=== PATIENT | female | born 2000 | race Caucasian/White ===

== ENCOUNTER 2020-08-25 16:09 | Outpatient (CLI) | payer OTHER ==
[2020-08-25 17:08] LABS: APPEARANCE,URINE CLOUDY; BILIRUBIN,URINE NEGATIVE (NEGATIVE); GLUCOSE, URINE NEGATIVE (NEGATIVE); KETONES,URINE NEGATIVE (NEGATIVE); LEUKOCYTE ESTERASE,URINE LARGE (NEGATIVE); NITRITE,URINE NEGATIVE (NEGATIVE); PROTEIN,URINE 30 mg/dL (NEGATIVE); URINE SPECIFIC GRAVITY 1.025
[2020-08-25 17:20] LABS: COLOR,URINE YELLOW
[2020-08-25 17:23] LABS: URINE AMPHETAMINES SCREEN NEGATIVE; URINE BARBITURATES SCREEN NEGATIVE; URINE BENZODIAZEPINES SCREEN NEGATIVE; URINE COCAINE SCREEN NEGATIVE; URINE MARIJUANA (THC) SCREEN NEGATIVE; URINE METHADONE SCREEN NEGATIVE; URINE PHENCYCLIDINE SCREEN NEGATIVE
--- NOTE | 2020-08-25 17:37 | Non Stress Test Report ---
Non Stress Test Datetime Report Generated by CPN: 08/25/2020 17:37 DEMOGRAPHIC Test Number: 1 EGA NST: 36.6 INDICATION Indication for Study (NST) Other: labor check VITAL SIGNS Temperature - NST: 97.5 Pulse - NST: 103 RESP - NST: 18 MONITORING Time on Monitor: 08/25/2020 16:38 Time off Monitor: 08/25/2020 17:04 NST Duration: 26 NST INTERVENTIONS Physician Notified NST: K Arroyo CNM BABY A: [id number] BABY A Movement : Present Contraction Frequency : 0 FHR Baseline : 145 Accelerations : 15X15 Decelerations : None Variability : Moderate 6-25bpm NST Review: Meets Criteria for Reactive NST NST Review: Meets Criteria for Reactive NST NST Review and Verified By : HUBERT Villa Results: Reactive NST REPORT Report Trigger: Send Report
== END 2020-08-25 17:15 | disposition home or self-care (01) ==
LOC: LC 16:09
PROVIDERS: ATTEND Obstetrics & Gynecology
DX: O47.03 False labor before 37 completed weeks of gestation, third trimester (principal); O99.283 Endocrine, nutritional and metabolic diseases complicating pregnancy, third trimester; E86.0 Dehydration; Z3A.36 36 weeks gestation of pregnancy
CPT/HCPCS: 59025; 80307; 81005

== ENCOUNTER 2020-09-08 01:11 | Outpatient (CLI) | payer OTHER ==
[2020-09-08 02:00] LABS: APPEARANCE,URINE SLIGHTLY-CLOUDY; BILIRUBIN,URINE NEGATIVE (NEGATIVE); COLOR,URINE YELLOW; GLUCOSE, URINE NEGATIVE (NEGATIVE); KETONES,URINE NEGATIVE (NEGATIVE); LEUKOCYTE ESTERASE,URINE MODERATE (NEGATIVE); NITRITE,URINE NEGATIVE (NEGATIVE); PROTEIN,URINE NEGATIVE (NEGATIVE); URINE SPECIFIC GRAVITY 1.017; UROBILINOGEN,URINE NEGATIVE mg/dL (<2.0)
[2020-09-08 02:18] LABS: URINE AMPHETAMINES SCREEN NEGATIVE; URINE BARBITURATES SCREEN NEGATIVE; URINE BENZODIAZEPINES SCREEN NEGATIVE; URINE COCAINE SCREEN NEGATIVE; URINE MARIJUANA (THC) SCREEN NEGATIVE; URINE METHADONE SCREEN NEGATIVE; URINE PHENCYCLIDINE SCREEN NEGATIVE
--- NOTE | 2020-09-08 02:47 | Non Stress Test Report ---
Non Stress Test Datetime Report Generated by CPN: 09/08/2020 02:47 DEMOGRAPHIC EGA NST: 38.6 INDICATION Indication for Study (NST) Other: lc for r/o srom URINE RESULTS Urine Blood - NST: Negative MONITORING Monitor Explained: Monitor Explained; Test Explained; Patient Verbalized Understanding Time on Monitor: 09/08/2020 01:26 Time off Monitor: 09/08/2020 02:39 NST Duration: 73 NST INTERVENTIONS NST Interventions: PO Hydration; Reposition Patient Physician Notified NST: Dr Palencia BABY A: [id number] BABY A Movement : Present Contraction Frequency : 4-6 FHR Baseline : 140 Accelerations : 15X15 Decelerations : None Variability : Moderate 6-25bpm NST Review: Meets Criteria for Reactive NST NST Review and Verified By : Gini Hutchinson RN NST Results: Reactive NST REPORT Report Trigger: Send Report
== END 2020-09-08 02:48 | disposition home or self-care (01) ==
LOC: LC 01:11
PROVIDERS: ATTEND Obstetrics & Gynecology
DX: O47.1 False labor at or after 37 completed weeks of gestation (principal); Z3A.38 38 weeks gestation of pregnancy
CPT/HCPCS: 80307; 81005; 84112

== ENCOUNTER 2020-09-14 14:57 | Outpatient (CLI) | payer OTHER ==
[2020-09-14 15:33] LABS: APPEARANCE,URINE CLOUDY; BILIRUBIN,URINE NEGATIVE (NEGATIVE); COLOR,URINE YELLOW; GLUCOSE, URINE NEGATIVE (NEGATIVE); KETONES,URINE NEGATIVE (NEGATIVE); LEUKOCYTE ESTERASE,URINE LARGE (NEGATIVE); NITRITE,URINE NEGATIVE (NEGATIVE); PROTEIN,URINE 30 mg/dL (NEGATIVE); URINE SPECIFIC GRAVITY 1.021; UROBILINOGEN,URINE NEGATIVE mg/dL (<2.0)
[2020-09-14 16:00] LABS: URINE AMPHETAMINES SCREEN NEGATIVE; URINE BARBITURATES SCREEN NEGATIVE; URINE BENZODIAZEPINES SCREEN NEGATIVE; URINE COCAINE SCREEN NEGATIVE; URINE MARIJUANA (THC) SCREEN NEGATIVE; URINE METHADONE SCREEN NEGATIVE; URINE PHENCYCLIDINE SCREEN NEGATIVE
--- NOTE | 2020-09-14 16:18 | Non Stress Test Report ---
Non Stress Test Datetime Report Generated by CPN: 09/14/2020 16:17 DEMOGRAPHIC Test Number: 3 EGA NST: 39.5 INDICATION Indication for Study (NST) Other: labor check VITAL SIGNS Temperature - NST: 97.1 Pulse - NST: 92 RESP - NST: 22 NBPSYS NST: 106 NBPDIA NST: 59 MONITORING Monitor Explained: Monitor Explained; Test Explained; Patient Verbalized Understanding Time on Monitor: 09/14/2020 15:13 Time off Monitor: 09/14/2020 15:46 NST Duration: 33 NST INTERVENTIONS NST Interventions: PO Hydration; Reposition Patient Physician Notified NST: K Arroyo BABY A: [id number] BABY A Movement : Present Contraction Frequency : 0 FHR Baseline : 150 Accelerations : 15X15 Decelerations : None Variability : Moderate 6-25bpm NST Review: Meets Criteria for Reactive NST NST Review and Verified By : Dylan Yao RN NST Results: Reactive NST REPORT Report Trigger: Send Report
== END 2020-09-14 16:03 | disposition home or self-care (01) ==
LOC: LC 14:57
PROVIDERS: ATTEND Obstetrics & Gynecology Gynecology
DX: O42.02 Full-term premature rupture of membranes, onset of labor within 24 hours of rupture (principal); Z3A.39 39 weeks gestation of pregnancy; Z02.83 Encounter for blood-alcohol and blood-drug test
CPT/HCPCS: 59025; 80307; 81005; 84112

== ENCOUNTER 2020-09-20 08:31 | Inpatient (IN) | payer OTHER ==
[2020-09-20 10:17] LABS: APPEARANCE,URINE CLOUDY; BILIRUBIN,URINE NEGATIVE (NEGATIVE); COLOR,URINE YELLOW; GLUCOSE, URINE NEGATIVE (NEGATIVE); KETONES,URINE NEGATIVE (NEGATIVE); LEUKOCYTE ESTERASE,URINE LARGE (NEGATIVE); NITRITE,URINE NEGATIVE (NEGATIVE); PROTEIN,URINE 30 mg/dL (NEGATIVE); URINE SPECIFIC GRAVITY 1.019; UROBILINOGEN,URINE NEGATIVE mg/dL (<2.0)
[2020-09-20 10:37] LABS: URINE AMPHETAMINES SCREEN NEGATIVE; URINE BARBITURATES SCREEN NEGATIVE; URINE BENZODIAZEPINES SCREEN NEGATIVE; URINE COCAINE SCREEN NEGATIVE; URINE MARIJUANA (THC) SCREEN NEGATIVE; URINE METHADONE SCREEN NEGATIVE; URINE PHENCYCLIDINE SCREEN NEGATIVE
--- NOTE | 2020-09-20 10:56 | Admission Physical ---
Datetime Report Generated by CPN: 09/20/2020 10:56 CURRENT ADMISSION Hx Assessment: The History has been Reviewed and is Current Chief Complaint: Uterine Contractions Chief Complaint Other: IOL scheduled for 09/19/20 but not able to come in due to patient census however now in active labor with contracitons Q 5minutes and cervical change Indication for Induction: Maternal Diabetes Admit Impression : Term, Intrauterine Admit Plan: Admit to Unit; Initiate Labor Induction Protocol ALLERGIES Medication Allergies: No Medication Allergies: No Known Allergies (09/14/2020) Latex: No Latex Allergies OBSTETRICAL HISTORY EDC: 09/16/2020 00:00 : 1 Para: 0 Term: 0 : 0 SAB: 0 IAB: 0 Livin Gestational Diabetes: Yes MEDICAL HISTORY Diabetes: Yes Diabetes Type: Gestational Diabetes PHYSICAL EXAM General: Normal HEENT: Normal Neurologic: Normal Thyroid: Normal Heart: Normal Lungs: Normal Breast: Normal Back: Normal Abdomen: Normal Genitourinary Exam: Normal Extremities: Normal DTRs: Normal Pelvic Type: Adequate Vital Signs: Reviewed VAGINAL EXAM Dilatation: 3 Effacement: 75 Station: -3 Contraction Comments: Every 3-5 minutes MEMBRANES Pooling: Negative Membranes: Intact FETUS A EGA: 40.4 Monitoring: External US FHR- Baseline: 130 Variability: Moderate 6-25bpm Accelerations: 15X15 Decelerations: None FHR Category: Category I Presentation: Vertex Admit Comment: G1 at 40.4 wks EGA for IOL although is torey now every 5 minutes-- > active labor -Admit to LDR -NPO and IVFs: LR at 150cc/hr after 1 liter bolus -A2GDM, Accuchecks Q 4 hours, then Q 2 hours -Will monitor for cervical change and if not changing then will plan for cytotec/pitocin/AROM -GBS negative -Anticipate INFORMED CONSENT Informed Consent Obtained: Vaginal Delivery; Section Delivery; Induction of Labor; Vacuum/Forceps Assist; Risks, Benefits and Alternatives Discussed Signature: with User ID: Janelle : with User ID: Janelle
[2020-09-20] MEDS ORDERED: GLUCAGON,HUMAN RECOMB 1 MG INJ IM PRN (11:10)
[2020-09-20] MEDS ORDERED: OXYTOCIN/0.9 % SODIUM CHLORIDE 30 UNIT/500 ML RTUINJ IV PRN (11:10)
[2020-09-20] MEDS ORDERED: RINGERS SOLUTION,LACTATED 300 ML IV ONE (11:10)
[2020-09-20] MEDS ORDERED: ACETAMINOPHEN 325 MG TABLET PO PRN (11:10)
[2020-09-20] MEDS ORDERED: ZOLPIDEM TARTRATE 5 MG TABLET PO PRN (11:10)
[2020-09-20] MEDS ORDERED: DEXTROSE 50%-WATER 25 GM/50 ML DISP.SYRIN IV PRN ×2 (11:10)
[2020-09-20] MEDS ORDERED: RINGERS SOLUTION,LACTATED 1,000 ML IV PRN (11:10)
[2020-09-20] MEDS ORDERED: MAG HYDROX/AL HYDROX/SIMETH SUSP 30 ML UDCUP PO PRN (11:10)
[2020-09-20] MEDS ORDERED: DEXTROSE 40% GEL 15 GM TUBE PO PRN ×2 (11:10)
[2020-09-20 11:54] LABS: ABSOLUTE LYMPHOCYTES (AUTO) 2.1 10^3/uL (0.5-4.7); ABSOLUTE MONOCYTES (AUTO) 0.4 10^3/uL (0.1-1.4); ABSOLUTE NEUT (AUTO) 10.1 10^3/uL (1.7-8.2); BASOPHILS % (AUTO) 0.2 % (0-2); EOSINOPHILS % (AUTO) 0.3 % (0-6); HEMATOCRIT 32.4 % (36.0-47.0); HEMOGLOBIN 10.6 g/dL (12.0-15.5); LYMPHOCYTES % (AUTO) 16.7 % (13-45); MEAN CORPUSCULAR HEMOGLOBIN 23.8 pg (27.0-33.4); MEAN CORPUSCULAR HGB CONC 32.7 g/dL (32.0-36.0); MEAN CORPUSCULAR VOLUME 73 fl (80-97); PLATELET COUNT 240 10^3/uL (150-450); RED BLOOD COUNT 4.44 10^6/uL (3.72-5.28); RED CELL DISTRIBUTION WIDTH 21.1 % (11.5-14.0); SEGMENTED NEUTROPHILS % (AUTO) 79.8 % (42-78); TOTAL CELLS COUNTED % (AUTO) 100 %; WHITE BLOOD COUNT 12.7 10^3/uL (4.0-10.5)
[2020-09-20] MEDS ORDERED: MISOPROSTOL 0.1 MG TABLET ONE (12:29)
--- NOTE | 2020-09-20 12:42 | L&D Progress Notes ---
PROGRESS NOTES Datetime Report Generated by CPN: 09/20/2020 12:42 PROGRESS NOTE Informed Consent Obtained: Vaginal Delivery; Section Delivery; Induction of Labor; Vacuum/Forceps Assist; Risks, Benefits and Alternatives Discussed Comment: c/o of increase in pain with uc's, VE 4/80/vtx/-1, OOB to BR, Cat 1 strip, uc's q 3-4, mod with palpation, desires epidural when available, mom inroom with pt VAGINAL EXAM Dilatation: 3 Effacement: 75 Station: -3 Contractions: Every 3-5 minutes LAST VAGINAL EXAM-NURSING Nursing Exam Dilitation: 4.0 Nursing Exam Effacement: 80 Nursing Exam Station: -1 Nursing Exam Contractions: toco applied MEMBRANES Pooling: Negative Membranes: Intact FETUS A : 40.4 Presentation: Vertex SIGNATURE SIGNATURE: [id number];[id number];[id number] Assignment: Serene Palencia MD Signature: with User ID: Leonila : with User ID: Leonila
[2020-09-20] MEDS ORDERED: LIDOCAINE 1% INJ-PF (10 MG/ML) 30 ML SDV ONE ×2 (13:30→19:21)
[2020-09-20] MEDS ORDERED: OXYTOCIN/0.9 % SODIUM CHLORIDE 30 UNIT/500 ML RTUINJ ONE (13:30)
[2020-09-20] MEDS ORDERED: OXYTOCIN 10 UNIT/ML VIAL ONE (13:30)
[2020-09-20] MEDS ORDERED: MISOPROSTOL 0.2 MG TABLET ONE (13:30)
[2020-09-20] MEDS ORDERED: EPHEDRINE SULFATE INJ 50 MG/1 ML AMPULE ONE (14:54)
[2020-09-20] MEDS ORDERED: ROPIVACAINE HCL 0.2% INJ/PF (2 MG/ML) 20 ML SDV ONE (14:55)
[2020-09-20] MEDS ORDERED: FENTANYL/BUPIVACAINE/NS/PF 300 MCG/150 ML RTUINJ EPI ONE (14:55)
--- NOTE | 2020-09-20 15:11 | L&D Progress Notes ---
PROGRESS NOTES Datetime Report Generated by CPN: 09/20/2020 15:11 PROGRESS NOTE Informed Consent Obtained: Vaginal Delivery; Section Delivery; Induction of Labor; Vacuum/Forceps Assist; Risks, Benefits and Alternatives Discussed Comment: pt OOB in room, had several decelerations, back to bed, monitor adjusted, Cat 1 strip with moderate variability, uc's stronger, discussed epidural VAGINAL EXAM Dilatation: 3 Effacement: 75 Station: -3 Contractions: Every 3-5 minutes LAST VAGINAL EXAM-NURSING Nursing Exam Dilitation: 4.0 Nursing Exam Effacement: 80 Nursing Exam Station: -1 Nursing Exam Contractions: toco applied MEMBRANES Pooling: Negative Membranes: Intact FETUS A : 40.4 Presentation: Vertex SIGNATURE SIGNATURE: [id number];[id number];[id number] Assignment: Serene Palencia MD Signature: with User ID: Leonila : with User ID: Leonila
[2020-09-21] MEDS ORDERED: CEFAZOLIN 2 GM/D5W RTU 2 GM/50 ML RTUPB IV ONE (00:32)
[2020-09-21] MEDS ORDERED: CITRIC ACID/SODIUM CITRATE ORAL SOLN 15 ML UDCUP ONE (00:32)
[2020-09-21] MEDS ORDERED: KETOROLAC TROMETHAMINE INJ/PF 30 MG/1 ML SDV ONE (00:50)
[2020-09-21] MEDS ORDERED: MIDAZOLAM 2 MG/2 ML INJ ONE (00:50)
[2020-09-21] MEDS ORDERED: EPHEDRINE SULFATE INJ 50 MG/1 ML AMPULE ONE (00:50)
[2020-09-21] MEDS ORDERED: OXYTOCIN/0.9 % SODIUM CHLORIDE 30 UNIT/500 ML RTUINJ ONE (00:50)
[2020-09-21] MEDS ORDERED: FENTANYL CITRATE INJ/PF 100 MCG/2 ML AMPUL ONE ×2 (00:50→03:01)
[2020-09-21] MEDS ORDERED: LIDOCAINE 2% INJ-PF (20 MG/ML) 10 ML AMPUL ONE (00:50)
[2020-09-21] MEDS ORDERED: OXYTOCIN 10 UNIT/ML VIAL ONE (00:50)
[2020-09-21] MEDS ORDERED: ONDANSETRON HCL INJ/PF 4 MG/2 ML SDV ONE (00:51)
[2020-09-21] MEDS ORDERED: ACETAMINOPHEN 1,000 MG/100 ML RTUPB IV ONE (00:51)
[2020-09-21] MEDS ORDERED: DIPH/PERTUSS(ACELL)/TETANUS VAC/PF 0.5 ML SYR (>=10YO) IM PRN (02:18)
[2020-09-21] MEDS ORDERED: PROMETHAZINE HCL INJ 25 MG/1 ML VIAL IV PRN (02:18)
[2020-09-21] MEDS ORDERED: OXYTOCIN/0.9 % SODIUM CHLORIDE 30 UNIT/500 ML RTUINJ IV PRN (02:18)
[2020-09-21] MEDS ORDERED: ACETAMINOPHEN 325 MG TABLET PO PRN (02:18)
[2020-09-21] MEDS ORDERED: HYDROMORPHONE HCL INJ/PF 2 MG/ML AMPULE IV PRN (02:18)
[2020-09-21] MEDS ORDERED: RINGERS SOLUTION,LACTATED 1,000 ML IV PRN (02:18)
[2020-09-21] MEDS ORDERED: SIMETHICONE 80 MG TAB.CHEW PO PRN (02:18)
[2020-09-21] MEDS ORDERED: MEASLES,MUMPS&RUBELLA VACC/PF 0.5 ML VIAL SUBCUT PRN (02:18)
--- NOTE | 2020-09-21 02:31 | Operative Report ---
Operative Report DATE OF SURGERY: 09/21/20 PREOPERATIVE DIAGNOSIS: Intrauterine 40.4 wks EGA. A2GDM. Arrest of descent. Non-reassuring heart tracing: repetetive decels POSTOPERATIVE DIAGNOSIS: Same as above OPERATION: Primary section SURGEON: TUNG GIPSON ANESTHESIA: Spinal TISSUE REMOVED OR ALTERED: Placenta COMPLICATIONS: None ESTIMATED BLOOD LOSS: 750 INTRAOPERATIVE FINDINGS: Normal appearing uterus, bilateral fallopian tubes and uterus. Vertex/ occiput posterior presentation. Meconium stained amniotic fluid. VIable male infant. TRue knot in cord. Nuchal x2 noted,loose and easily reduced PROCEDURE: IV fluids: per anesthesia record Urinary output: 200 cc patrick color urine Findings: Normal-appearing uterus bilateral fallopian tubes and ovaries. Placenta normal grossly. Viable male infant with Apgars of 8 and 9, at 1 and 5 minutes respectively. A true knot noted in cord. Nuchal x2, loose and easily reduced Position: To recovery room in stable condition Description of procedure: The patient was taken to the operating room and spinal anesthesia was administered and found to be adequate. She was then placed on the OR table in the supine position with a slight leftward tilt. Patient was prepped and draped in usual sterile fashion. Ancef 2 gms was given IV prior to the procedure for infection prophylaxis. Timeout was taken. A Pfannenstiel skin incision was then made approximately 3 cm above the pubic symphysis and carried down to level the rectus fascia. The rectus fascia was then nicked in the midline with a scalpel and the fascial incision was extended laterally with use of curved Guido scissors. The rectus fascia was then grasped with 2 Kocker clamps elevated and the underlying rectus muscle was dissected off both bluntly and sharply. Any bleeding controlled with cautery. The rectus muscles were then split in the midline and the peritoneum was entered. The peritoneal incision was then extended by manually stretching the peritoneum. The bladder blade was positioned. The bladder was noted to be out of harm's way. A scalpel was then used in the lower uterine for the hysterotomy, slowly until amniotomy was obtained a small amount of meconium stained fluid was noted. The uterine incision was then manually stretched. The was noted to be in vertex postion -deep in the pelvis. Using a hand deep in pelvis, the head was elevated and brought to the hysterotomy incision. The head then delivered with minmal difficulty. The shoulders and the rest of the body followed immediately. The cord was cut clamped and the was handed off to the nurse awaiting. Infant was crying prior to hand off. True knot and nuchal x2 noted and easily reduced. The placenta was manually delivered. Using a lap gauze the uterus was cleared of all clots and debris. An britt retractor was placed to facilitate closure of uterus. The uterus was then exteriorized and a bladder blade was repositioned. The uterine incision was then closed with 0 Chromic suture in a running locked fashion. A second layer of the same suture was used in a running locked imbricated fashion. The uterine incision was inspected and noted to be hemostatic. Retractor was removed. The posterior aspect of the uterus was then inspected and anatomy was seen as above. The uterus was returned to its normal anatomic position within the abdominal cavity. Warm saline irrigation was used to clear all clots and debris from the abdomen. The uterine incision was inspected once more and noted to remain hemostatic. The bladder blade was removed and the peritoneum was closed with 2-0 chromic in a running fashion. The rectus muscles were then reapproximated and the rectus fascia was closed with a #0 looped PDS in a running fashion. The subcutaneous tissue was then inspected and any bleeding was controlled with Bovie electrocautery. The subcutaneous tissue was then closed with 2-0 Plain Gut suture in a running fashion. The skin was then closed with 4-0 Monocryl in a running subcuticular fashion. The skin incision was then clean dried and Dermabond and waffle dressing was applied over the skin incision. All instrument sponge and needle counts were correct x3 for the procedure the patient tolerated the procedure well. She will proceed to recovery room in [facility]
--- NOTE | 2020-09-21 02:34 | PDOC DELIVERY SUMMARY ---
Delivery Summary - Maternal Hx : I Hx Para: 0 Gestational Age: 40.4 Risk Factors: Gestational Diabetes Fluids: Meconium Stained - Delivery Labor: Induction Presentation: Vertex - Occiput posterior Heart Rate Monitoring: Done Pre-Operatively, Externally Uterine Contraction Monitoring: External Pattern: Late Decels Support Person Present: Yes Location: OR : Primary Placenta: Within Normal Limits Placenta Description: grossly normal Number of Vessels (Cord): 3 Nuchal Cord: Yes - x2, loose and easily reduced. TRue knot noted Estimated Blood Loss: 750cc - Medications Type of Anesthesia:: Spinal - Delivery Personnel MD: TUNG GIPSON
[2020-09-21] MEDS: OXYCODONE-ACETAMINOPHEN 5-325 MG TABLET PO PRN ×4 (05:49→19:58)
[2020-09-21] MEDS: KETOROLAC TROMETHAMINE INJ/PF 30 MG/1 ML SDV IV SCH ×3 (07:04→21:24)
[2020-09-21] MEDS: IBUPROFEN 800 MG TABLET PO SCH ×3 (07:04→21:36)
[2020-09-21] MEDS: DOCUSATE SODIUM 100 MG CAPSULE PO SCH ×2 (09:55→17:25)
[2020-09-21] MEDS: PRENATAL VITAMIN W DHA CAPSULE PO SCH (09:55)
[2020-09-21] MEDS: FLUOXETINE HCL 20 MG CAPSULE PO SCH (09:56)
[2020-09-21] MEDS ORDERED: CEFAZOLIN SODIUM 2 GM in DEXTROSE 5%-WATER 50 ML IV PRN (12:45)
[2020-09-22] MEDS: OXYCODONE-ACETAMINOPHEN 5-325 MG TABLET PO PRN ×4 (04:37→21:50)
[2020-09-22] MEDS: IBUPROFEN 800 MG TABLET PO SCH ×3 (06:05→21:50)
[2020-09-22 07:33] LABS: HEMATOCRIT 23.4 % (36.0-47.0); MEAN CORPUSCULAR HEMOGLOBIN 24.2 pg (27.0-33.4); MEAN CORPUSCULAR HGB CONC 32.5 g/dL (32.0-36.0); MEAN CORPUSCULAR VOLUME 75 fl (80-97); PLATELET COUNT 207 10^3/uL (150-450); RED BLOOD COUNT 3.14 10^6/uL (3.72-5.28); RED CELL DISTRIBUTION WIDTH 22.8 % (11.5-14.0); WHITE BLOOD COUNT 11.5 10^3/uL (4.0-10.5)
[2020-09-22 07:46] LABS: HEMOGLOBIN 7.6 g/dL (12.0-15.5)
--- NOTE | 2020-09-22 09:52 | PDOC PROGRESS REPORT ---
Subjective-OB Progress Note for:: 09/22/20 Subjective: Pt doing well, no concerns. She reports adequate pain control now, is ambulatory, voiding w/o difficulty, +flatus and bleeding is light. Physical Exam (OB) Vital Signs: Temp Pulse Resp BP Pulse Ox 97.7 F 86 18 128/60 H 97 09/22/20 07:16 09/22/20 07:16 09/22/20 07:16 09/22/20 07:16 09/22/20 07:16 Intake & Output 09/21/20 09/22/20 09/23/20 06:59 06:59 06:59 Intake Total 200 1300 Output Total 300 1700 Balance -100 -400 Weight 118.5 kg - PIH/Pre-Eclampsia DTR's: 1 + Clonus: Negative Headache: Absent Epigastric Pain: No Visual Changes: No - Dressing Removed: Yes Incision: Dressing Closure Type: opsite - Maternal Morbidity 59. Maternal Morbidity (serious complications experinced by the mother associated with labor and delivery: None of the above - Lochia Lochia Amount: Scant < 10 ml Lochia Color: Rubra/Red - Abdomen Description: Soft, Round Hernia Present: No Fundal Description: Firm, Midline Fundal Height: u/u - u/2 Objective-Diagnostic Laboratory: 09/22/20 06:39 09/22/20 06:39 WBC 11.5 H RBC 3.14 L Hgb 7.6 L D Hct 23.4 L MCV 75 L MCH 24.2 L MCHC 32.5 RDW 22.8 H Plt Count 207 Assessment and Plan(PN) - Assessment and Plan (1) Acute postoperative anemia due to greater than expected blood loss Is this a current diagnosis for this admission?: Yes (2) Non-reassuring status, delivered, current hospitalization Is this a current diagnosis for this admission?: Yes (3) hemorrhage Qualifiers: hemorrhage type: third-stage Qualified Code(s): O72.0 - Third- stage hemorrhage Is this a current diagnosis for this admission?: Yes (4) S/P primary low transverse Is this a current diagnosis for this admission?: Yes - Time Spent with Patient Time with patient: Less than 15 minutes Medications reviewed and adjusted accordingly: Yes - Disposition Anticipated Discharge Disposition: Home, Self Care Anticipated Discharge Timeframe: within 48 hours
[2020-09-22] MEDS: BUSPIRONE HCL 10 MG TABLET PO PRN (09:58)
[2020-09-22] MEDS: DOCUSATE SODIUM 100 MG CAPSULE PO SCH ×2 (09:58→17:30)
[2020-09-22] MEDS: PRENATAL VITAMIN W DHA CAPSULE PO SCH (09:58)
[2020-09-22] MEDS: FLUOXETINE HCL 20 MG CAPSULE PO SCH (10:03)
[2020-09-23] MEDS: OXYCODONE-ACETAMINOPHEN 5-325 MG TABLET PO PRN (05:29)
[2020-09-23] MEDS: IBUPROFEN 800 MG TABLET PO SCH (05:29)
[2020-09-23] MEDS: FLUOXETINE HCL 20 MG CAPSULE PO SCH (09:14)
[2020-09-23] MEDS: BUSPIRONE HCL 10 MG TABLET PO PRN (09:16)
[2020-09-23] MEDS: DOCUSATE SODIUM 100 MG CAPSULE PO SCH (09:16)
[2020-09-23] MEDS: PRENATAL VITAMIN W DHA CAPSULE PO SCH (09:16)
--- NOTE | 2020-09-23 09:37 | PDOC DISCHARGE SUMMARY ---
Impression - Admit/DC Date/PCP Admission Date/Primary Care Provider: 09/20/20 11:10 TUNG GIPSON MD Discharge Date: 09/23/20 - Discharge Diagnosis (1) Acute postoperative anemia due to greater than expected blood loss Is this a current diagnosis for this admission?: Yes (2) Non-reassuring status, delivered, current hospitalization Is this a current diagnosis for this admission?: Yes (3) hemorrhage Is this a current diagnosis for this admission?: Yes (4) S/P primary low transverse Is this a current diagnosis for this admission?: Yes (5) Oral hypoglycemic controlled White classification A2 gestational diabetes mellitus (GDM) Is this a current diagnosis for this admission?: Yes - Additional Information Resuscitation Status: Full Code Discharge Diet: Regular Discharge Activity: Balance Activity w/Rest, Pelvic Rest Referrals: TUNG GIPSON MD [Primary Care Provider] - Prescriptions: Oxycodone HCl/Acetaminophen [Percocet 5-325 mg Tablet] 1 tab PO Q4HP PRN #60 tablet PRN Reason: Ibuprofen [Motrin 800 mg Tablet] 800 mg PO Q8HP PRN #60 tablet PRN Reason: Home Medications: Buspirone HCl [Buspar 10 mg Tablet] 10 mg PO DAILYP PRN 08/25/20 Fluoxetine HCl [Prozac] 40 mg PO DAILY 08/25/20 Pnv 102/Iron/Folate 1/Dss/Dha [Vitafol Fe+ Docusate Combo Pck] 1 each PO DAILY 08/25/20 Ferrous Sulfate [Ferosul] 325 mg PO BID 09/14/20 Ibuprofen [Motrin 800 mg Tablet] 800 mg PO Q8HP PRN #60 tablet 09/23/20 Oxycodone HCl/Acetaminophen [Percocet 5-325 mg Tablet] 1 tab PO Q4HP PRN #60 tablet 09/23/20 HPI Gestational Age: 40.4 Reason(s) for Admission: Onset of Labor, Gestional Diabetes Procedures: NST Intrapartum Procedure(s): : Low Cervical, Transverse Hospital Course 59. Maternal Morbidity (serious complications experinced by the mother associated with labor and delivery: None of the above Results Laboratory Results: WBC 11.5 10^3/uL (4.0-10.5) H 09/22/20 06:39 RBC 3.14 10^6/uL (3.72-5.28) L 09/22/20 06:39 Hgb 7.6 g/dL (12.0-15.5) L D 09/22/20 06:39 Hct 23.4 % (36.0-47.0) L 09/22/20 06:39 MCV 75 fl (80-97) L 09/22/20 06:39 MCH 24.2 pg (27.0-33.4) L 09/22/20 06:39 MCHC 32.5 g/dL (32.0-36.0) 09/22/20 06:39 RDW 22.8 % (11.5-14.0) H 09/22/20 06:39 Plt Count 207 10^3/uL (150-450) 09/22/20 06:39 Lymph % (Auto) 16.7 % (13-45) 09/20/20 11:36 [place] % (Auto) 3.0 % (3-13) 09/20/20 11:36 Eos % (Auto) 0.3 % (0-6) 09/20/20 11:36 Baso % (Auto) 0.2 % (0-2) 09/20/20 11:36 Absolute Neuts (auto) 10.1 10^3/uL (1.7-8.2) H 09/20/20 11:36 Absolute Lymphs (auto) 2.1 10^3/uL (0.5-4.7) 09/20/20 11:36 Absolute Monos (auto) 0.4 10^3/uL (0.1-1.4) 09/20/20 11:36 Absolute Eos (auto) 0.0 10^3/uL (0.0-0.6) 09/20/20 11:36 Absolute Basos (auto) 0.0 10^3/uL (0.0-0.2) 09/20/20 11:36 Seg Neutrophils % 79.8 % (42-78) H 09/20/20 11:36 POC Glucose 82 mg/dL (70-110) 09/20/20 12:47 Urine Color YELLOW 09/20/20 08:46 Urine Appearance CLOUDY 09/20/20 08:46 Urine pH 6.0 (5.0-9.0) 09/20/20 08:46 Ur Specific [place] 1.019 09/20/20 08:46 Urine Protein 30 mg/dL (NEGATIVE) H 09/20/20 08:46 Urine Glucose (UA) NEGATIVE mg/dL (NEGATIVE) 09/20/20 08:46 Urine Ketones NEGATIVE mg/dL (NEGATIVE) 09/20/20 08:46 Urine Blood MODERATE (NEGATIVE) H 09/20/20 08:46 Urine Nitrite NEGATIVE (NEGATIVE) 09/20/20 08:46 Urine Bilirubin NEGATIVE (NEGATIVE) 09/20/20 08:46 Urine Urobilinogen NEGATIVE mg/dL (<2.0) 09/20/20 08:46 Ur Leukocyte Esterase LARGE (NEGATIVE) H 09/20/20 08:46 Urine Ascorbic Acid NEGATIVE (NEGATIVE) 09/20/20 08:46 Urine Opiates Screen NEGATIVE 09/20/20 08:46 Urine Methadone Screen NEGATIVE 09/20/20 08:46 Ur Barbiturates Screen NEGATIVE 09/20/20 08:46 Ur Phencyclidine Scrn NEGATIVE 09/20/20 08:46 Ur Amphetamines Screen NEGATIVE 09/20/20 08:46 U Benzodiazepines Scrn NEGATIVE 09/20/20 08:46 Urine Cocaine Screen NEGATIVE 09/20/20 08:46 U Marijuana (THC) Screen NEGATIVE 09/20/20 08:46 RPR NONREACTIVE (NONREACTIVE) 09/20/20 11:36 Blood Type O POSITIVE 09/20/20 11:36 Antibody Screen NEGATIVE 09/20/20 11:36 Plan Plan of Treatment: f/u at [facility] 5 days for incision check Time Spent: Less than 30 Minutes
[2020-09-23 11:01] VITALS: BP 132/68
--- NOTE | 2020-09-26 12:19 | Delivery Summary ---
Del Sum A-C Datetime Report Generated by CPN: 09/26/2020 12:18 DELIVERY PERSONNEL DELIVERY PERSONNEL: [id number] Delivery Doctor:: Serene Palencia MD Delivery Doctor:: Serene Palencia MD Anesthesiologist:: Dr. Hernández METAL TRADES INSTRUCTOR:: A. Normile, METAL TRADES INSTRUCTOR Motorcycle Builder:: Jessie Ortiz RN Quality Assurance Supervisor:: Dr. Cally Lawrence Lead Oracle Developer/WELFARE INVESTIGATOR: ST Michael Lead Oracle Developer/WELFARE INVESTIGATOR: Tesha Jimenez ST MATERNAL INFORMATION Delivery Anesthesia: Epidural Medications After Delivery: Pitocin 30 Units in 500ml NS/D5W; Pitocin Drip 20 Units/1000ml NSS Delivery QBL: 970 Delivery QBL Comment: Total 1214 Maternal Complications: Other Other Maternal Complications: late decelerations: repetetive Provider Comments: see operative note for details LABOR SUMMARY EDC: 09/16/2020 00:00 No. Babies in Womb: 1 Attempted: No Labor Anesthesia: Epidural LABOR INFORMATION Reason for Induction: Maternal Diabetes Onset of Labor: 09/20/2020 22:24 Oxytocin: Induction Group B Beta Strep: negative Steroids Given: None Reason Steroids Not Administered: Not Applicable MEMBRANES Membranes Rupture Method: Artificial Rupture of Membranes: 09/20/2020 22:24 Length of Rupture (hr): 3.15 Amniotic Fluid Color: Light Meconium Amniotic Fluid Amount: Small STAGES OF LABOR Stage 3 hr: 0 Stage 3 min: 1 Total Time in Labor hr: 3 Total Time in Labor min: 10 VAGINAL DELIVERY Count Comment: see count sheet CSECTION DELIVERY Primary Indication: Arrest of Descent Other Primary Indication: NOn-reassuring heart tracing; late decels repetetively CSection Incidence: Primary Labor: Labor CSection Incision: Lower Uterine Transverse CSection Incision: Lower Uterine Transverse BABY A INFORMATION Delivery Date/Time: 09/21/2020 01:33 Delivery Date/Time: 09/21/2020 01:33 Method of Delivery: Nurse Controlled Delivery: No Born in Route : No : N/A Forceps: N/A Vacuum Extraction: N/A Shoulder Dystocia : No PRESENTATION/POSITION BABY A Presentation: Cephalic Presentation: Cephalic Presentation: Cephalic Cephalic Presentation: Vertex Vertex Position: Right Occipital Posterior PLACENTA INFORMATION BABY A Placenta Delivery Time : 09/21/2020 01:34 Placenta Method of Delivery: Spontaneous Placenta Status: Delivered INFANT INFORMATION BABY A Gestational Age at Delivery: 40.5 Gestational Status: Full Term- 39- 40.6 Weeks Outcome : Liveborn Infant Condition : Stable Infant Sex: Male IDENTIFICATION BABY A Verification Date/Time: 09/21/2020 01:44 Verification Date/Time: 09/21/2020 01:40 ID Band Number: [id number] ID Band Number: [id number] Mother's Name Verified: Yes Mother's Name Verified: Yes Infant RN Verifying : Damaris Ortiz RN RN Verifying : HUBERT Greco Additional Verifying Personnel: Dax Hassan RN Additional Verifying Personnel: Maged Mattson RN WEIGHT/LENGTH BABY A Infant Birthweight (gm): 3870 Birthweight (gm): 3890 Infant Weight (lb): 8 Weight (oz): 9 Infant Length (in): 20.50 Infant Length (in): 20.50 Length (cm): 52.07 CORD INFORMATION BABY A No. Cord Vessels: 3 Nuchal Cord : Around Neck x2, Loose True Knot: 1 Cord Blood Taken: N/A Suction: Mouth ASSESSMENT BABY A Infant Respirations: Appears Normal Skin to Skin: Yes Quality Assurance Supervisor/ALS Called : No Transferred To: [facility] SIGNATURES Signature: with User ID: [email or web address] : with User ID: Janelle
== END 2020-09-23 12:08 | disposition home or self-care (01) | DRG 787 ==
LOC: LC 08:31 → LR 11:10 → 2N 09-21 04:57
PROVIDERS: ADMIT Obstetrics & Gynecology; ATTEND Obstetrics & Gynecology
PROC: 10D00Z1 Extraction of Products of Conception, Low, Open Approach (ICD-10-PCS; principal; 2020-09-21)
DX: O24.425 Gestational diabetes mellitus in childbirth, controlled by oral hypoglycemic drugs (principal); D62 Acute posthemorrhagic anemia; O72.0 Third-stage hemorrhage; Z37.0 Single live birth; O90.81 Anemia of the puerperium; O76 Abnormality in fetal heart rate and rhythm complicating labor and delivery; O32.4XX0 Maternal care for high head at term, not applicable or unspecified; O69.1XX0 Labor and delivery complicated by cord around neck, with compression, not applicable or unspecified; O77.0 Labor and delivery complicated by meconium in amniotic fluid; O64.0XX0 Obstructed labor due to incomplete rotation of fetal head, not applicable or unspecified; Z20.822 Contact with and (suspected) exposure to COVID-19; Z3A.40 40 weeks gestation of pregnancy
CPT/HCPCS: 36415; 80307; 81005; 82962; 85025; 85027; 86592; 86850; 86900; 86901; 88307; 94799; J0131; J0690; J1885; J2250; J2405; J2590; J2795; J3010; J3490